=== PATIENT | male | born 1940 | race Caucasian/White ===

== ENCOUNTER 2017-08-10 11:24 | Emergency (ER) | payer MEDICARE, BC ==
[2017-08-10] MEDS ORDERED: ASPIRIN 81 MG CHEWABLE TABLET PO ONE (11:45)
[2017-08-10 12:01] LABS: BASO % 0.3 % (0-6); EOS % 2.4 % (0-6); HEMATOCRIT 46.8 % (42.0-52.0); HEMOGLOBIN 15.7 gm/dl (14.0-18.0); LYMPH % 38.7 % (16-45); MEAN CELL VOLUME 88.3 fl (81-97); MEAN CORPUSCULAR HEMOGLOBIN 29.6 pg (27-33); MEAN CORPUSCULAR HGB CONC 33.5 g/dl (32-36); MEAN PLATELET VOLUME 9.7 fl (7.4-10.4); MONO % 12.6 % (0-9); PLATELET COUNT 193 K/uL (130-400); RED CELL DISTRIBUTION WIDTH 13.7 % (11.5-14.5); WHITE BLOOD COUNT W/O DIFF 7.1 K/uL (4.2-12.2)
[2017-08-10 12:12] LABS: BLOOD UREA NITROGEN 20 mg/dL (8-23); CREATININE 1.1 mg/dL (0.7-1.2); EST GLOMERULAR FILTRATION RATE > 60 mL/min
[2017-08-10 12:15] LABS: GLUCOSE,RANDOM 128 mg/dL (74-109)
[2017-08-10 12:21] LABS: CKMB 3.2 ng/mL (<6.73)
--- NOTE | 2017-08-10 12:50 | Emergency Department Record ---
History of Present Illness - General Chief Complaint: Dizziness Stated Complaint: LIGHTHEADED Time Seen by Provider: 08/10/17 11:45 Mode of Arrival: Ambulatory - History of Present Illness Initial Comments: patient came in for a BP check because dizziness yesterday caring heavy things at the [employer]. No chest pain today and not dizzy laying on the bed. Patient diaphorectic slightly on arrival. Patient initial pulse 34 and he states he has a history of bradycardia. We do not have any old EKG's Onset/Timin -: Week(s) Timing: Unsure Description: Lightheadedness History of Same: Yes Improves With: Nothing Worsens With: Nothing Associated Symptoms: Diaphoresis, Other - [place] Coma Scale Eye Response: (4) Open spontaneously Motor Response: (6) Obeys commands Verbal Response: (5) Oriented Adarsh Total: 15 - Related Data Home Medications Medication Instructions Recorded Confirmed Last Taken Clobetasol Propionate/Emoll 15 gm TP ASDIR 08/10/17 08/10/17 08/10/17 [Clobetasol Emollient 0.05% Crm] Finasteride [Proscar] 5 mg PO DAILY 08/10/17 08/10/17 08/10/17 Lisinopril [Zestril] 10 mg PO DAILY 08/10/17 08/10/17 08/10/17 Tamsulosin HCl [Flomax] 0.4 mg PO DAILY 08/10/17 08/10/17 08/10/17 Allergies Allergy/AdvReac Type Severity Reaction Status Date / Time No Known Drug Intolerances Allergy Unknown Unverified 08/25/13 10:07 Travel Screening - Travel/Exposure Within Last 30 Days Have you traveled within the last 30 days?: Yes Location Detail:: [place] - Travel/Exposure Within Last Year Have you traveled outside the [place] in the last year?: No - Additonal Travel Details Have you been exposed to anyone with a communicable illness?: No - Travel Symptoms Symptom Screening: None Review of Systems Reviewed: No additional complaints except as noted below Constitutional: Reports: As per HPI. Denies: Chills, Fever, Malaise, Night sweats, Weakness, Weight change Eyes: Reports: As per HPI. Denies: Eye discharge, Eye pain, Photophobia, Vision change ENT: Reports: As per HPI. Denies: Congestion, Dental pain, Ear pain, Epistaxis , Hearing loss, Throat pain Respiratory: Reports: As per HPI. Denies: Cough, Dyspnea, Hemoptysis, Stridor, Wheezes Cardiovascular: Reports: As per HPI, Other (dizziyness). Denies: Arrhythmia, Chest pain, Dyspnea on exertion, Edema, Murmurs, Orthopnea, Palpitations, Paroxysmal nocturnal dyspnea, Rheumatic Fever, Syncope Endocrine: Reports: As per HPI. Denies: Fatigue, Heat or cold intolerance, Polydipsia, Polyuria Gastrointestinal: Reports: As per HPI. Denies: Abdominal pain, Constipation, Diarrhea, Hematemesis, Hematochezia, Melena, Nausea, Vomiting Genitourinary: Reports: As per HPI. Denies: Dysuria, Frequency, Hematuria, Incontinence, Retention, Testicular pain, Testicular mass, Urgency Musculoskeletal: Reports: As per HPI. Denies: Arthralgia, Back pain, Gout, Joint swelling, Myalgia, Neck pain Skin: Reports: As per HPI. Denies: Bruising, Change in color, Change in hair/ nails, Lesions, Pruritus, Rash Neurological: Reports: As per HPI. Denies: Abnormal gait, Confusion, Headache, Numbness, Paresthesias, Seizure, Tingling, Tremors, Vertigo, Weakness Psychiatric: Reports: As per HPI. Denies: Anxiety, Auditory hallucinations, Depression, Homicidal thoughts, Suicidal thoughts, Visual hallucinations Hematological/Lymphatic: Reports: As per HPI. Denies: Anemia, Blood Clots, Easy bleeding, Easy bruising, Swollen glands Past Medical History - SOCIAL HISTORY Smoking Status: Never smoker Alcohol Use: Rare Drug Use: None - RESPIRATORY Hx Respiratory Disorders: No - CARDIOVASCULAR Hx Cardio Disorders: No Comment:: Slow heart rate - NEURO Hx Neuro Disorders: No - GI Hx GI Disorders: Yes Hx Ulcer: Yes - Hx Genitourinary Disorders: Yes Hx Prostate Problems: Yes - ENDOCRINE Hx Endocrine Disorders: No - MUSCULOSKELETAL Hx Musculoskeletal Disorders: No - PSYCH Hx Psych Problems: Yes Hx Depression: Yes - HEMATOLOGY/ONCOLOGY Hx Hematology/Oncology Disorders: No Family Medical History Any Significant Family History?: No Hx Cancer: Father, Brother/Sister Hx Heart Disease: Mother *Heart Comment: mom pacer Physical Exam - General General Appearance: Alert, Oriented x3, Cooperative, No acute distress - Head Head exam: Normal inspection - Eye Eye exam: Normal appearance, PERRL Pupils: Normal accommodation - ENT ENT exam: Normal exam, Mucous membranes moist, Normal external ear exam, Normal orophraynx, TM's normal bilaterally Ear exam: Normal external inspection. negative: External canal tenderness Nasal Exam: Normal inspection. negative: Discharge, Sinus tenderness Mouth exam: Normal external inspection, Tongue normal Teeth exam: Normal inspection. negative: Dental caries Throat exam: Normal inspection. negative: Tonsillar erythema, Tonsillar exudate - Neck Neck exam: Normal inspection, Full ROM. negative: Tenderness - Respiratory Respiratory exam: Normal lung sounds bilaterally. negative: Respiratory distress - Cardiovascular Cardiovascular Exam: Regular rate, Normal heart sounds, Bradycardia - GI/Abdominal GI/Abdominal exam: Soft, Normal bowel sounds. negative: Tenderness - Rectal Rectal exam: Deferred - exam: Deferred - Extremities Extremities exam: Normal inspection, Full ROM, Normal capillary refill. negative: Tenderness - Back Back exam: Reports: Normal inspection, Full ROM. Denies: Muscle spasm, Rash noted, Tenderness - Neurological Neurological exam: Alert, Normal gait, Oriented X3, Reflexes normal - Psychiatric Psychiatric exam: Normal affect, Normal mood - Skin Skin exam: Dry, Intact, Normal color, Warm Course Vital Signs 08/10/17 11:25 Temperature 98.2 F Pulse Rate 36 L Respiratory 18 Rate Blood Pressure 153/107 Pulse Ox 94 L - Reevaluation(s) Reevaluation #1: discussed case with Dr. Lake and will transfer to [facility] for further care. 08/10/17 12:44 Reevaluation #2: 08/10/17 12:46 08/10/17 12:55 Reevaluation #3: place pacemaker patches on and only turn on if symptomatic. 08/10/17 12:55 Medical Decision Making - Data Complexity MDM Data: Labs Ordered and/or Reviewed (cardiac enyzes negative, mag 2.2 normal) , X-Ray Ordered and/or Reviewed (neg chest), EKG Ordered and/or Reviewed (Sinus bradycardia,) - Lab Data Result diagrams: 08/10/17 11:50 08/10/17 11:50 Lab Results 08/10/17 08/10/17 08/10/17 Range/Units 11:50 11:50 11:50 WBC 7.1 (4.2-12.2) K/uL RBC 5.30 (4.40-5.70) M/uL Hgb 15.7 (14.0-18.0) gm/dl Hct 46.8 (42.0-52.0) % MCV 88.3 (81-97) fl MCH 29.6 (27-33) pg MCHC 33.5 (32-36) g/dl RDW 13.7 (11.5-14.5) % Plt Count 193 (130-400) K/uL MPV 9.7 (7.4-10.4) fl Gran % 46.0 L (47-80) % Lymphocytes % 38.7 (16-45) % Monocytes % 12.6 H (0-9) % Eosinophils % 2.4 (0-6) % Basophils % 0.3 (0-6) % APTT 28.3 (24.5-39.1) SECONDS Sodium 139 (136-145) mmol/L Potassium 4.6 H (3.4-4.5) mmol/L Chloride 102 (98-107) mmol/L Carbon Dioxide 25.0 (22-29) mmol/L Anion Gap 12.0 (7-16) BUN 20 (8-23) mg/dL Creatinine 1.1 (0.7-1.2) mg/dL Estimated GFR > 60 mL/min Random Glucose 128 H (74-109) mg/dL Calcium 9.2 (8.8-10.2) mg/dL Magnesium (1.6-2.4) mg/dL CK-MB (CK-2) 3.2 (<6.73) ng/mL Troponin T < 0.010 (0-0.010) ng/mL 08/10/17 Range/Units 11:50 WBC (4.2-12.2) K/uL RBC (4.40-5.70) M/uL Hgb (14.0-18.0) gm/dl Hct (42.0-52.0) % MCV (81-97) fl MCH (27-33) pg MCHC (32-36) g/dl RDW (11.5-14.5) % Plt Count (130-400) K/uL MPV (7.4-10.4) fl Gran % (47-80) % Lymphocytes % (16-45) % Monocytes % (0-9) % Eosinophils % (0-6) % Basophils % (0-6) % APTT (24.5-39.1) SECONDS Sodium (136-145) mmol/L Potassium (3.4-4.5) mmol/L Chloride (98-107) mmol/L Carbon Dioxide (22-29) mmol/L Anion Gap (7-16) BUN (8-23) mg/dL Creatinine (0.7-1.2) mg/dL Estimated GFR mL/min Random Glucose (74-109) mg/dL Calcium (8.8-10.2) mg/dL Magnesium 2.2 (1.6-2.4) mg/dL CK-MB (CK-2) (<6.73) ng/mL Troponin T (0-0.010) ng/mL Disposition Clinical Impression: Bradycardia, Dizziness Disposition: Acute Care Hospital Transfer Condition: (1) Good Forms: Patient Portal Access Time of Disposition: 12:46 Quality - Quality Measures Quality Measures: N/A - Blood Pressure Screening Does Patient Have Any of the Following: No, Active Dx of HTN Blood Pressure Classification: Hypertensive Reading Systolic Measurement: 153 Diastolic Measurement: 107 Screening for High Blood Pressure: Patient Exclusion, Hx of HTN [G9744]
--- NOTE | 2017-08-11 21:31 | RADIOLOGY REPORT ---
EXAM: CHEST 1 VIEW HISTORY: LIGHTHEADED, BRADYCARDIA. TECHNIQUE: Single AP semi-upright portable chest. COMPARISON: None. FINDINGS: Heart size at about the upper limits of normal allowing for the AP semi-upright positioning. No acute infiltrate identified. No pleural effusion or pneumothorax seen. Possible nodules seen through the heart overlying the left base about 13 mm in size. This could just be overlapping structures but follow-up PA and lateral views suggested. IMPRESSION: 1. HEART SIZE AT ABOUT THE UPPER LIMITS OF NORMAL. 2. NO ACUTE INFILTRATE EVIDENT. 3. POSSIBLE 1.3 CM NODULE LEFT BASE. JOB NUMBER: [id number] MTDD
== END 2017-08-10 14:07 | disposition short-term general hospital (02) ==
LOC: ER 11:24
DX: R00.1 Bradycardia, unspecified (principal); R42 Dizziness and giddiness; I10 Essential (primary) hypertension; Z95.0 Presence of cardiac pacemaker
CPT/HCPCS: 71045; 80048; 82553; 83735; 84484; 85025; 85730; 93005; 93010; 99285